=== PATIENT | male | born 1975 | race Caucasian/White ===

== ENCOUNTER 2017-10-22 18:30 | Emergency (ER) | payer BC ==
[~2017-10-22] VITALS: Ht 175.3 cm; Wt 90.9 kg
[2017-10-22] MEDS ORDERED: MOTRIN800 MG PO (20:11)
[2017-10-22] MEDS ORDERED: PERCOCET 5/31 TABLET PO (20:11)
[2017-10-22] MEDS ORDERED: FLEXERIL10 MG PO (20:11)
[2017-10-22] MEDS ORDERED: COLACE100 MG PO (20:13)
[2017-10-22 20:35] VITALS: BP 148/89
== END 2017-10-22 21:04 | disposition home or self-care (01) ==
LOC: EME 18:30
DX: M62.830 Muscle spasm of back (principal); F17.200 Nicotine dependence, unspecified, uncomplicated
CPT/HCPCS: 99281; 99283